=== PATIENT | male | born 2000 | race Caucasian/White ===

== ENCOUNTER 2024-04-17 20:32 | Inpatient (IN) ==
[2024-04-17 21:43] LABS: Alanine Aminotransferase 64 U/L (7-52); Albumin Globulin Ratio 1.6 (0.9-2); Albumin Level 5.1 gm/dl (3.4-5.0); Alkaline Phosphatase 67 U/L (34-104); Anion Gap 15 (3-11); BUN Creatinine Ratio 12.3 (10-20); Bilirubin,Total 0.3 mg/dl (0.2-1.0); Blood Urea Nitrogen 15 mg/dl (6-23); Calcium 9.1 mg/dl (8.6-10.3); Carbon Dioxide 20 mmol/L (21-32); Chloride 104 mmol/L (98-107); Creatinine Clr Calc Pharmacy 102.5 ml/min; Globulin 3.1 gm/dl (2.5-4.0); Glucose 120 mg/dl (70-99(Fasting)); Magnesium 2.6 mg/dl (1.7-2.4); Sodium 139 mmol/L (136-145); Total Protein 8.2 gm/dl (6.0-8.3); Troponin I High Sensitivity 2.8 pg/ml (0-20)
[2024-04-17 21:45] LABS: Basophils # (auto) 0.09 K/uL (0.00-0.20); Basophils % (auto) 0.8 %; Eosinophils # (auto) 0.26 K/uL (0.00-0.50); Eosinophils % (auto) 2.3 %; Hematocrit (blood only) 44.9 % (42.0-52.0); Hemoglobin 15.7 g/dl (14.0-18.0); Immature Granulocytes # (auto) 0.06 K/uL (0.01-0.20); Immature Granulocytes % (auto) 0.5 %; Lymphocytes # (auto) 4.65 K/uL (1.20-3.40); Lymphocytes % (auto) 40.5 %; Mean Corpuscular Hemoglobin 32.2 pg (25.0-34.0); Mean Platelet Volume 11.3 fL (9.4-12.4); Monocytes # (auto) 0.78 K/uL (0.11-0.59); Monocytes % (auto) 6.8 %; Neutrophils # (auto) 5.65 K/uL (1.40-6.50); Neutrophils % (auto) 49.1 %; Platelet Count 230 K/uL (130-400); RDW Coefficient of Variation 12.5 % (11.5-14.5); RDW Standard Deviation 42.4 fL (36.4-46.3); Red Blood Count 4.88 M/uL (4.70-6.10); White Blood Count 11.49 K/ul (4.8-10.8)
[2024-04-17 22:48] LABS: Adenovirus PCR Not Detected (NotDetected); Bordetella parapertussis PCR Not Detected (NotDetected); Bordetella pertussis PCR Not Detected (NotDetected); Chlamydia pneumoniae PCR Not Detected (NotDetected); Coronavirus 229E PCR Not Detected (NotDetected); Coronavirus CoV-2 (COVID19)PCR Not Detected (NotDetected); Coronavirus HKU1 PCR Not Detected (NotDetected); Coronavirus NL63 PCR Not Detected (NotDetected); Coronavirus OC43PCR Not Detected (NotDetected); Human Metapneumovirus PCR Not Detected (NotDetected); Influenza A PCR Not Detected (NotDetected); Influenza B PCR Not Detected (NotDetected); Mycoplasma pneumoniae PCR Not Detected (NotDetected); Parainfluenza Virus 1 PCR Not Detected (NotDetected); Parainfluenza Virus 2 PCR Not Detected (NotDetected); Parainfluenza Virus 3 PCR Not Detected (NotDetected); Parainfluenza Virus 4 PCR Not Detected (NotDetected); Respiratory Syncytial VirusPCR Not Detected (NotDetected); Rhinovirus/Enterovirus PCR Not Detected (NotDetected)
[2024-04-17 23:23] LABS: Potassium 3.5 mmol/L (3.5-5.1)
[2024-04-18 01:10] LABS: Appearance Urine Clear (Clear); Bilirubin Urine Negative (Negative); Blood Urine Negative (Negative); Color Urine Yellow; Glucose Urine UA Negative (Negative); Ketones Urine Negative (Negative); Leukocyte Esterase Urine Negative (Negative); Nitrite Urine Negative (Negative); Protein Urine Negative (Negative); Specific Gravity Urine 1.016 (1.000-1.030); Urobilinogen Urine Negative (Negative)
[2024-04-18 01:26] LABS: Amphetamines+Metham, Urine Neg (Neg); Barbiturates, Urine Neg (Neg); Benzodiazepine, Urine Neg (Neg); Cocaine, Urine Neg (Neg); Fentanyl, Urine Neg (Neg); MDMA (Ecstacy), Urine Neg (Neg); Marijuana, Urine Pos (Neg); Methadone, Urine Neg (Neg); Opiate, Urine Neg (Neg); Phencyclidine, Urine Neg (Neg)
--- NOTE | 2024-04-18 01:51 | Emergency Department Note ---
History of Present Illness General Chief complaint: Syncope Stated complaint: Seizure Time Seen by Provider: 04/17/24 21:33 History of Present Illness This is a 24-year-old male presenting to the emergency department via EMS for evaluation of syncope versus seizure. 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 Patient remembers feeling tired while in the supermarket, then next remembers waking up in the ER. According to EMS the patient was found slumped sideways up against the shelving in the supermarket. He was unresponsive but had a pulse and was breathing. EMS states the patient started to become more aware well and route to the ER. Patient does not have any known medical disease. No chronic medication use. He does not have any recent fevers or flulike symptoms. Patient has not been drinking tonight. He will occasionally use marijuana, and does have his marijuana card. He does travel for work but nothing out of the ordinary. Patient may have bit his tongue. No extremity pain. No chest pain, chest tightness, shortness of breath, or abdominal pain. Home Medications Medication Instructions Recorded Confirmed Type fluoxetine 20 mg capsule 20 mg PO QAM 04/18/24 04/18/24 History Allergies Allergy/AdvReac Type Severity Reaction Status Date / Time No Known Allergies Allergy Unverified 04/18/24 01:07 Past Med/Surg History Problem List (Updated 04/18/24 @ 04:57 by Bryan Chu PA-C) Abnormal CT scan of head (Acute) Seizure-like activity (Acute) Medical History (Updated 04/18/24 @ 04:57 by Bryan Chu PA-C) No chronic diseases present Surgical History (Updated 04/18/24 @ 01:52 by Bryan Chu PA-C) No significant past surgical history Social History Smoking Status: Current every day smoker Tobacco Type: E-cigarettes / Vaping Preferred Language: [place] Feels Safe at Home: Yes Review of Systems A total of 10 systems reviewed and were otherwise negative Physical Exam Vital Signs Vital Signs - 24 hr 04/17/24 20:43 04/17/24 20:54 04/17/24 21:01 Temperature 36.6 C Temperature Source Oral Pulse Rate 82 85 Pulse Rate from SpO2 Sensor 87 Respiratory Rate 13 16 Respiratory Effort / Characteristics Non-Labored Spontaneous Respiratory Depth Normal Respiratory Pattern Regular Blood Pressure 154/69 H Blood Pressure Mean 97 Pulse Oximetry 97 98 Oxygen Delivery Method Room Air Room Air Sepsis Recent Fever Within 48 Hours No Sepsis New/Unexplained Change in Mental Status No Sepsis Action Taken by Nursing No Action Required 04/17/24 21:39 04/17/24 21:57 04/17/24 22:09 Temperature Temperature Source Pulse Rate 76 72 Pulse Rate from SpO2 Sensor Respiratory Rate 12 13 Respiratory Effort / Characteristics Respiratory Depth Respiratory Pattern Blood Pressure 140/73 Blood Pressure Mean 90 Pulse Oximetry Oxygen Delivery Method Sepsis Recent Fever Within 48 Hours Sepsis New/Unexplained Change in Mental Status Sepsis Action Taken by Nursing 04/17/24 22:09 04/17/24 22:09 04/17/24 22:30 Temperature Temperature Source Pulse Rate 73 Pulse Rate from SpO2 Sensor 73 Respiratory Rate 12 Respiratory Effort / Characteristics Respiratory Depth Respiratory Pattern Blood Pressure 140/73 115/72 Blood Pressure Mean 90 79 Pulse Oximetry 99 Oxygen Delivery Method Sepsis Recent Fever Within 48 Hours Sepsis New/Unexplained Change in Mental Status Sepsis Action Taken by Nursing 04/17/24 22:30 04/17/24 22:33 04/17/24 22:45 Temperature Temperature Source Pulse Rate 70 70 Pulse Rate from SpO2 Sensor 70 70 Respiratory Rate 14 17 Respiratory Effort / Characteristics Respiratory Depth Respiratory Pattern Blood Pressure 115/72 Blood Pressure Mean 79 Pulse Oximetry 99 98 Oxygen Delivery Method Sepsis Recent Fever Within 48 Hours Sepsis New/Unexplained Change in Mental Status Sepsis Action Taken by Nursing 04/17/24 22:52 04/17/24 22:57 04/17/24 23:01 Temperature Temperature Source Pulse Rate 73 63 Pulse Rate from SpO2 Sensor 64 Respiratory Rate 14 Respiratory Effort / Characteristics Respiratory Depth Respiratory Pattern Blood Pressure 119/72 Blood Pressure Mean 85 Pulse Oximetry 99 Oxygen Delivery Method Sepsis Recent Fever Within 48 Hours Sepsis New/Unexplained Change in Mental Status Sepsis Action Taken by Nursing 04/17/24 23:12 04/17/24 23:21 04/17/24 23:24 Temperature Temperature Source Pulse Rate 69 77 63 Pulse Rate from SpO2 Sensor 69 63 Respiratory Rate 15 20 17 Respiratory Effort / Characteristics Respiratory Depth Respiratory Pattern Blood Pressure Blood Pressure Mean Pulse Oximetry 99 98 Oxygen Delivery Method Sepsis Recent Fever Within 48 Hours Sepsis New/Unexplained Change in Mental Status Sepsis Action Taken by Nursing 04/17/24 23:30 04/17/24 23:30 04/17/24 23:33 Temperature Temperature Source Pulse Rate 75 Pulse Rate from SpO2 Sensor 75 Respiratory Rate 18 Respiratory Effort / Characteristics Respiratory Depth Respiratory Pattern Blood Pressure 108/51 L 108/51 L Blood Pressure Mean 61 61 Pulse Oximetry 95 Oxygen Delivery Method Sepsis Recent Fever Within 48 Hours Sepsis New/Unexplained Change in Mental Status Sepsis Action Taken by Nursing 04/17/24 23:57 04/18/24 00:00 04/18/24 00:00 Temperature Temperature Source Pulse Rate 64 Pulse Rate from SpO2 Sensor 64 Respiratory Rate 18 Respiratory Effort / Characteristics Respiratory Depth Respiratory Pattern Blood Pressure 123/71 123/71 Blood Pressure Mean 85 85 Pulse Oximetry 97 Oxygen Delivery Method Sepsis Recent Fever Within 48 Hours Sepsis New/Unexplained Change in Mental Status Sepsis Action Taken by Nursing 04/18/24 00:03 04/18/24 00:12 04/18/24 00:15 Temperature Temperature Source Pulse Rate 69 62 62 Pulse Rate from SpO2 Sensor 70 62 62 Respiratory Rate 16 17 15 Respiratory Effort / Characteristics Respiratory Depth Respiratory Pattern Blood Pressure Blood Pressure Mean Pulse Oximetry 96 96 96 Oxygen Delivery Method Sepsis Recent Fever Within 48 Hours Sepsis New/Unexplained Change in Mental Status Sepsis Action Taken by Nursing 04/18/24 00:30 04/18/24 00:30 04/18/24 01:00 Temperature Temperature Source Pulse Rate Pulse Rate from SpO2 Sensor Respiratory Rate Respiratory Effort / Characteristics Respiratory Depth Respiratory Pattern Blood Pressure 102/60 102/60 118/71 Blood Pressure Mean 84 84 84 Pulse Oximetry Oxygen Delivery Method Sepsis Recent Fever Within 48 Hours Sepsis New/Unexplained Change in Mental Status Sepsis Action Taken by Nursing 04/18/24 01:09 04/18/24 01:18 04/18/24 02:00 Temperature Temperature Source Pulse Rate 62 67 Pulse Rate from SpO2 Sensor 62 68 Respiratory Rate 18 16 Respiratory Effort / Characteristics Respiratory Depth Respiratory Pattern Blood Pressure 123/58 L Blood Pressure Mean 71 Pulse Oximetry 97 98 Oxygen Delivery Method Sepsis Recent Fever Within 48 Hours Sepsis New/Unexplained Change in Mental Status Sepsis Action Taken by Nursing 04/18/24 02:00 04/18/24 02:00 04/18/24 02:00 Temperature Temperature Source Pulse Rate Pulse Rate from SpO2 Sensor Respiratory Rate Respiratory Effort / Characteristics Respiratory Depth Respiratory Pattern Blood Pressure 123/58 L 123/58 L 123/58 L Blood Pressure Mean 71 71 71 Pulse Oximetry Oxygen Delivery Method Sepsis Recent Fever Within 48 Hours Sepsis New/Unexplained Change in Mental Status Sepsis Action Taken by Nursing 04/18/24 02:03 04/18/24 02:18 04/18/24 02:21 Temperature Temperature Source Pulse Rate 63 66 66 Pulse Rate from SpO2 Sensor 63 67 66 Respiratory Rate 18 17 17 Respiratory Effort / Characteristics Respiratory Depth Respiratory Pattern Blood Pressure Blood Pressure Mean Pulse Oximetry 95 96 96 Oxygen Delivery Method Sepsis Recent Fever Within 48 Hours Sepsis New/Unexplained Change in Mental Status Sepsis Action Taken by Nursing 04/18/24 02:30 04/18/24 02:30 04/18/24 02:50 Temperature Temperature Source Pulse Rate 63 61 Pulse Rate from SpO2 Sensor 69 Respiratory Rate 16 Respiratory Effort / Characteristics Respiratory Depth Respiratory Pattern Blood Pressure 99/46 L Blood Pressure Mean 60 Pulse Oximetry 95 Oxygen Delivery Method Sepsis Recent Fever Within 48 Hours Sepsis New/Unexplained Change in Mental Status Sepsis Action Taken by Nursing VITALS: Vitals are noted on the nurse's note and reviewed by myself. Vital signs stable. GENERAL: Well-developed, well-nourished, white male, who is in no acute distress and resting comfortably. Patient is cooperative with the examination. HEAD: Normocephalic atraumatic. EARS: External ear normal. External auditory canals clear, tympanic membranes pearly merritt without erythema or effusion bilaterally. EYES: Pupils equal round and reactive to light and accommodation. Conjunctivae without injection, sclerae without icterus. Extraocular movements intact. NOSE: Patent, turbinates without inflammation or discharge. MOUTH: Mucous membranes moist. Tonsils are not enlarged. Pharynx without erythema, blood, or exudate. Uvula midline. Airway patent. NECK: Supple without nuchal rigidity. No lymphadenopathy. No thyromegaly. Cervical spine is nontender. HEART: Regular rate and rhythm without murmurs gallops or rubs. LUNGS: Clear to auscultation bilaterally without wheezes, rales or rhonchi. No retractions or accessory muscle use. ABDOMEN: Positive normal bowel sounds x 4. Soft, nontender, without masses or organomegaly. No guarding or rebound tenderness. MUSCULOSKELETAL: No muscle atrophy, erythema, or edema noted. Full range of motion in all extremities. NEURO: Patient was alert and oriented to person place and time. CN II through XII grossly intact. GCS 15 Course Administered Medications Sodium Chloride (Nss) 1,000 mls @ 100 mls/hr IV .Q10H STA Stop: 04/18/24 13:40 Last Admin: 04/18/24 04:30 Dose: 100 mls/hr Documented By: OLU Discontinued Medications Levetiracetam (Levetiracetam 500 Mg/5 Ml Vial) 1,000 mg IV NOW STA Stop: 04/18/24 03:39 Last Admin: 04/18/24 04:33 Dose: 1,000 mg Documented By: OLU Medical Decision Making Differential Diagnosis Differential diagnosis: Etiologies such as vasovagal event, infection, anemia, hypoglycemia, hypovolemia, electrolyte abnormalities, dysrhythmias, cardiac ischemia, cardiac tamponade, valvular heart disease, structural heart disease, seizure, vascular stenosis/dissection, pulmonary embolism, intracerebral event, toxicological process, neurologic event, as well as others were entertained. Laboratory Data 04/17/24 20:50 04/17/24 22:55 Lab Results 04/17/24 04/17/24 04/17/24 Range/Units 20:50 21:52 22:55 WBC 11.49 H (4.8-10.8) K/ul RBC 4.88 (4.70-6.10) M/uL Hgb 15.7 (14.0-18.0) g/dl Hct 44.9 (42.0-52.0) % MCV 92.0 (80.0-100.0) fL MCH 32.2 (25.0-34.0) pg MCHC 35.0 (32.0-36.0) g/dL RDW Std Deviation 42.4 (36.4-46.3) fL RDW Coeff of Sue 12.5 (11.5-14.5) % Plt Count 230 (130-400) K/uL MPV 11.3 (9.4-12.4) fL Immature Gran % (Auto) 0.5 % Neut % (Auto) 49.1 % Lymph % (Auto) 40.5 % [place] % (Auto) 6.8 % Eos % (Auto) 2.3 % Baso % (Auto) 0.8 % Neut # (Auto) 5.65 (1.40-6.50) K/uL Lymph # (Auto) 4.65 H (1.20-3.40) K/uL [place] # (Auto) 0.78 H (0.11-0.59) K/uL Eos # (Auto) 0.26 (0.00-0.50) K/uL Baso # (Auto) 0.09 (0.00-0.20) K/uL Immature Gran # (Auto) 0.06 (0.01-0.20) K/uL Sodium 139 (136-145) mmol/L Potassium TNP 3.5 Chloride 104 (98-107) mmol/L Carbon Dioxide 20 L (21-32) mmol/L Anion Gap 15 H (3-11) BUN 15 (6-23) mg/dl Creatinine 1.22 (0.6-1.4) mg/dl Est Cr Clr Drug Dosing 102.5 ml/min eGFR 84.90 BUN/Creatinine Ratio 12.3 (10-20) Glucose 120 H (70-99(Fasting)) mg/dl Calcium 9.1 (8.6-10.3) mg/dl Magnesium 2.6 H (1.7-2.4) mg/dl Total Bilirubin 0.3 (0.2-1.0) mg/dl AST TNP 43 H ALT 64 H (7-52) U/L Alkaline Phosphatase 67 (34-104) U/L Total Creatine Kinase 230 H (30-223) U/L Troponin I High Sens 2.8 (0-20) pg/ml Total Protein 8.2 (6.0-8.3) gm/dl Albumin 5.1 H (3.4-5.0) gm/dl Globulin 3.1 (2.5-4.0) gm/dl Albumin/Globulin Ratio 1.6 (0.9-2) Urine Color Urine Appearance (Clear) Urine pH (4.5-7.5) Ur Specific Sikes (1.000-1.030) Urine Protein (Negative) Urine Glucose (UA) (Negative) Urine Ketones (Negative) Urine Blood (Negative) Urine Nitrite (Negative) Urine Bilirubin (Negative) Urine Urobilinogen (Negative) Ur Leukocyte Esterase (Negative) Urine Opiates Screen (Neg) Ur Methadone, Qual (Neg) Urine Fentanyl Screen (Neg) Urine Barbiturates (Neg) Ur Phencyclidine (PCP) (Neg) U Amphetamin/Meth Scrn (Neg) MDMA (Ecstasy) Screen (Neg) U Benzodiazepines Scrn (Neg) Ur Cocaine Metabolite (Neg) U Marijuana (THC) Screen (Neg) Ethyl Alcohol mg/dL < 10.0 (<10.0) mg/dl Adenovirus (PCR) Not Detected (NotDetected) B. pertussis DNA (PCR) Not Detected (NotDetected) B.parapertussis DNA PCR Not Detected (NotDetected) C. pneumoniae DNA (PCR) Not Detected (NotDetected) Coronavirus OC43 (PCR) Not Detected (NotDetected) Coronavirus HKU1 (PCR) Not Detected (NotDetected) Coronavirus 229E (PCR) Not Detected (NotDetected) SARS-CoV-2 (PCR) Not Detected (NotDetected) Coronavirus NL63 (PCR) Not Detected (NotDetected) Human Metapneumovir PCR Not Detected (NotDetected) Influenza Type A (PCR) Not Detected (NotDetected) Influenza Type B (PCR) Not Detected (NotDetected) M. pneumoniae (PCR) Not Detected (NotDetected) Parainfluenza 1 (PCR) Not Detected (NotDetected) Parainfluenza 2 (PCR) Not Detected (NotDetected) Parainfluenza 3 (PCR) Not Detected (NotDetected) Parainfluenza 4 (PCR) Not Detected (NotDetected) RSV (PCR) Not Detected (NotDetected) Entero/Rhino (PCR) Not Detected (NotDetected) 04/18/24 Range/Units 00:45 WBC (4.8-10.8) K/ul RBC (4.70-6.10) M/uL Hgb (14.0-18.0) g/dl Hct (42.0-52.0) % MCV (80.0-100.0) fL MCH (25.0-34.0) pg MCHC (32.0-36.0) g/dL RDW Std Deviation (36.4-46.3) fL RDW Coeff of Sue (11.5-14.5) % Plt Count (130-400) K/uL MPV (9.4-12.4) fL Immature Gran % (Auto) % Neut % (Auto) % Lymph % (Auto) % [place] % (Auto) % Eos % (Auto) % Baso % (Auto) % Neut # (Auto) (1.40-6.50) K/uL Lymph # (Auto) (1.20-3.40) K/uL [place] # (Auto) (0.11-0.59) K/uL Eos # (Auto) (0.00-0.50) K/uL Baso # (Auto) (0.00-0.20) K/uL Immature Gran # (Auto) (0.01-0.20) K/uL Sodium (136-145) mmol/L Potassium Chloride (98-107) mmol/L Carbon Dioxide (21-32) mmol/L Anion Gap (3-11) BUN (6-23) mg/dl Creatinine (0.6-1.4) mg/dl Est Cr Clr Drug Dosing ml/min eGFR BUN/Creatinine Ratio (10-20) Glucose (70-99(Fasting)) mg/dl Calcium (8.6-10.3) mg/dl Magnesium (1.7-2.4) mg/dl Total Bilirubin (0.2-1.0) mg/dl AST ALT (7-52) U/L Alkaline Phosphatase (34-104) U/L Total Creatine Kinase (30-223) U/L Troponin I High Sens (0-20) pg/ml Total Protein (6.0-8.3) gm/dl Albumin (3.4-5.0) gm/dl Globulin (2.5-4.0) gm/dl Albumin/Globulin Ratio (0.9-2) Urine Color Yellow Urine Appearance Clear (Clear) Urine pH 6.0 (4.5-7.5) Ur Specific Sikes 1.016 (1.000-1.030) Urine Protein Negative (Negative) Urine Glucose (UA) Negative (Negative) Urine Ketones Negative (Negative) Urine Blood Negative (Negative) Urine Nitrite Negative (Negative) Urine Bilirubin Negative (Negative) Urine Urobilinogen Negative (Negative) Ur Leukocyte Esterase Negative (Negative) Urine Opiates Screen Neg (Neg) Ur Methadone, Qual Neg (Neg) Urine Fentanyl Screen Neg (Neg) Urine Barbiturates Neg (Neg) Ur Phencyclidine (PCP) Neg (Neg) U Amphetamin/Meth Scrn Neg (Neg) MDMA (Ecstasy) Screen Neg (Neg) U Benzodiazepines Scrn Neg (Neg) Ur Cocaine Metabolite Neg (Neg) U Marijuana (THC) Screen Pos H (Neg) Ethyl Alcohol mg/dL (<10.0) mg/dl Adenovirus (PCR) (NotDetected) B. pertussis DNA (PCR) (NotDetected) B.parapertussis DNA PCR (NotDetected) C. pneumoniae DNA (PCR) (NotDetected) Coronavirus OC43 (PCR) (NotDetected) Coronavirus HKU1 (PCR) (NotDetected) Coronavirus 229E (PCR) (NotDetected) SARS-CoV-2 (PCR) (NotDetected) Coronavirus NL63 (PCR) (NotDetected) Human Metapneumovir PCR (NotDetected) Influenza Type A (PCR) (NotDetected) Influenza Type B (PCR) (NotDetected) M. pneumoniae (PCR) (NotDetected) Parainfluenza 1 (PCR) (NotDetected) Parainfluenza 2 (PCR) (NotDetected) Parainfluenza 3 (PCR) (NotDetected) Parainfluenza 4 (PCR) (NotDetected) RSV (PCR) (NotDetected) Entero/Rhino (PCR) (NotDetected) Imaging Data Radiologist's Impression: Head CT 04/17/24 21:47 EXAM: CT head/brain wo con CLINICAL HISTORY: seizure TECHNIQUE: Multiple axial images are obtained from the skull base to the vertex without contrast. CT scan was performed according to ALARA (as low as reasonable achievable). COMPARISON: None. FINDINGS: Approximately 143 x 63 x 62 mm size well defined cystic lesion is noted involving quadrigeminal cistern. Anteriorly it abuts the splenium of corpus callosum and quadrigeminal plate. Laterally it causes compression on bilateral lateral ventricles. The brain shows normal morphology, attenuation, and volume for age. No evidence of emorrhage, edema, mass effect, midline shift, extra axial collection, or hydrocephalus is noted. Ventricles, sulci, and basal cisterns are symmetric and normal in size and configuration. The merritt-white matter differentiation is preserved. Visualized paranasal sinuses and mastoid air cells are well aerated. Orbital contents are within normal limits. Bony structures are intact. IMPRESSION: 1. 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 Anteriorly it abuts the splenium of corpus callosum and quadrigeminal plate. Laterally it causes compression on bilateral lateral ventricles.- possibility of quadrigeminal cistern arachnoid cyst. Advised MRI brain correlation. 2. No obvious changes of hydrocephalus. Electronically signed by Bhavik Stock 04-18-2024 02:37 AM MDM Narrative Physical exam and history were performed. Nursing notes, EMR, and Medication List were personally reviewed. No social concerns were identified as barriers to patients care. Patient appears to have had seizure or syncopal episode today. The patient is amnestic to the events, and on arrival to the ER is able to answer most questions appropriately. His physical exam is reassuring. IV access was established and labs were obtained. He was cared for under seizure precautions. CT scan of the head was ordered. Patient's blood work is as above and was reviewed. He does not have a significantly elevated white blood cell count, gross anemia, bandemia, or significant electrolyte imbalance. Transaminases are not diagnostic. Alcohol negative. Urine without distinct evidence of infection. Drug abuse screen is positive for marijuana, which was expected. BioFire negative. CK only slightly elevated at 230. CT scan was performed and reviewed by myself and radiology. His ventricles do seem enlarged compared to expected findings for a 24-year-old male. He seems to have a likely cyst which may be contributing to these symptoms. I did discuss findings with on-call neurology, and recommendation at this time is for hospital observation and MRI to further differentiate his symptoms. Escalation of care is felt necessary. Case was discussed with the on-call hospitalist. Please see their dictation for further patient course, plan, and disposition. The chart was completed utilizing [employer] Speech Voice Recognition Software. Grammatical errors, random word insertions, pronoun errors, and incomplete sentences are an occasional consequence of this system due to software limitations, ambient noise, and hardware issues. Any formal questions or concerns about the content, text, or information contained within the body of this dictation should be directly addressed to the provider for clarification. Impression & Plan Seizure-like activity, Abnormal CT scan of head Discharge Plan Visit Data Chief Complaint: Syncope Stated Complaint: Seizure ED Provider: Valeria Webber ED Midlevel Provider: Bryan Chu Discharge Problem: Seizure-like activity, Abnormal CT scan of head Forms Stand Alone Forms: My [facility] Prescriptions Prescriptions: No Action fluoxetine 20 mg capsule 20 mg PO QAM Referrals Referrals: Morgan Alamo MD [Primary Care Provider] -
--- NOTE | 2024-04-18 02:38 | CT Scan Report ---
EXAM: CT head/brain wo con CLINICAL HISTORY: seizure TECHNIQUE: Multiple axial images are obtained from the skull base to the vertex without contrast. CT scan was performed according to ALARA (as low as reasonable achievable). COMPARISON: None. FINDINGS: Approximately 143 x 63 x 62 mm size well defined cystic lesion is noted involving quadrigeminal cistern. Anteriorly it abuts the splenium of corpus callosum and quadrigeminal plate. Laterally it causes compression on bilateral lateral ventricles. The brain shows normal morphology, attenuation, and volume for age. No evidence of emorrhage, edema, mass effect, midline shift, extra axial collection, or hydrocephalus is noted. Ventricles, sulci, and basal cisterns are symmetric and normal in size and configuration. The merritt-white matter differentiation is preserved. Visualized paranasal sinuses and mastoid air cells are well aerated. Orbital contents are within normal limits. Bony structures are intact. IMPRESSION: 1. 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 Anteriorly it abuts the splenium of corpus callosum and quadrigeminal plate. Laterally it causes compression on bilateral lateral ventricles.- possibility of quadrigeminal cistern arachnoid cyst. Advised MRI brain correlation. 2. No obvious changes of hydrocephalus. Electronically signed by Bhavik Stock 04-18-2024 02:37 AM
--- NOTE | 2024-04-18 03:40 | History & Physical Report ---
Date of Service April 18, 2024 Assessment & Plan (1) Seizure: Plan: New onset seizures Rule out brain tumor given abnormal CT head mood disorder, at baseline Hyperglycemia rule out DM ongoing vape use Admit to medical telemetry Seizure precautions IV Keppra 1 dose now for seizure prophylaxis EEG, MRI brain re: new onset seizures Neurology consult Re: New onset seizures with abnormal CT of the head (ED provider already in touch with Dr. Fontaine who recommends brain MRI.) Defer maintenance AED Rx recommendations to neurology Check hemoglobin A1c DVT prophylaxis Lovenox subcu Full code Text document was generated using [employer] voice recognition software. It may contain grammatical or spelling errors. Kindly contact undersigned for clarification of any documentation item in question. History of Present Illness Chief Complaint: Fall, possible seizure Primary Care Provider: Morgan Alamo MD History obtained from patient and records. Medical history significant for mood disorder, ongoing vape use. 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 Started feeling hungry and thirsty. Patient remembers sensation of falling down and having bitten his tongue. Patient woke up in the ER. Frontal headache symptoms. manager hospitality told him on his phone that grocery customers witness him having seizures. Patient denies chest pain, SOB. No prior episodes. Medical History as above Surgical History : None Family History : DM, COPD; no seizures or brain tumor Personal/Social history : Vape use, occasional EtOH intake, marijuana use, beverage company employee Allergies Allergy/AdvReac Type Severity Reaction Status Date / Time No Known Allergies Allergy Unverified 04/18/24 01:07 Home Medications Medication Instructions Recorded Confirmed Type fluoxetine 20 mg capsule 20 mg PO QAM 04/18/24 04/18/24 History Past Med/Surg History Problem List (Updated 04/18/24 @ 05:57 by Av Clifford MD) Seizure Abnormal CT scan of head (Acute) Seizure-like activity (Acute) Medical History (Updated 04/18/24 @ 05:57 by Av Clifford MD) No chronic diseases present Surgical History (Updated 04/18/24 @ 01:52 by Bryan Chu PA-C) No significant past surgical history Social History Smoking Status: Current every day smoker Tobacco Type: E-cigarettes / Vaping Preferred Language: Yakut Feels Safe at Home: Yes Review of Systems Review of Systems: As per HPI, all other systems reviewed and negative Physical Exam Physical Exam: GENERAL: Comfortable, pleasant, no respiratory distress SKIN: Normal color, warm HEENT: [place] palpebral conjunctivae, no ptosis, moist buccal mucosa, contusion over tongue tip NECK : Supple, no tenderness CHEST : CTA, no tenderness HEART : Bradycardia, no obvious murmurs ABDOMEN: Some distention, nontender EXTREMITIES : No LE swelling/tenderness, no other conspicuous deformities noted NEUROLOGIC : Coherent, no facial asymmetry, no other gross focality Results & Data Results & Data Vital Signs (Past 12 Hours) Vital Signs Temp Pulse Resp BP Pulse Ox O2 Del Method 04/18/24 02:50 61 04/18/24 02:30 99/46 L 04/18/24 02:30 63 16 95 04/18/24 02:21 66 17 96 04/18/24 02:18 66 17 96 04/18/24 02:03 63 18 95 04/18/24 02:00 123/58 L 04/18/24 02:00 123/58 L 04/18/24 02:00 123/58 L 04/18/24 02:00 123/58 L 04/18/24 01:18 67 16 98 04/18/24 01:09 62 18 97 04/18/24 01:00 118/71 04/18/24 00:30 102/60 04/18/24 00:30 102/60 04/18/24 00:15 62 15 96 04/18/24 00:12 62 17 96 04/18/24 00:03 69 16 96 04/18/24 00:00 123/71 04/18/24 00:00 123/71 04/17/24 23:57 64 18 97 04/17/24 23:33 75 18 95 04/17/24 23:30 108/51 L 04/17/24 23:30 108/51 L 04/17/24 23:24 63 17 98 04/17/24 23:21 77 20 04/17/24 23:12 69 15 99 04/17/24 23:01 119/72 04/17/24 22:57 63 14 99 04/17/24 22:52 73 04/17/24 22:45 70 17 98 04/17/24 22:33 70 14 99 04/17/24 22:30 115/72 04/17/24 22:30 115/72 04/17/24 22:09 73 12 99 04/17/24 22:09 140/73 04/17/24 22:09 140/73 04/17/24 21:57 72 13 04/17/24 21:39 76 12 04/17/24 21:01 Room Air 04/17/24 20:54 85 16 98 04/17/24 20:43 36.6 C 82 13 154/69 H 97 Room Air Laboratory Results Laboratory Results WBC 11.49 K/ul (4.8-10.8) H 04/17/24 20:50 RBC 4.88 M/uL (4.70-6.10) 04/17/24 20:50 Hgb 15.7 g/dl (14.0-18.0) 04/17/24 20:50 Hct 44.9 % (42.0-52.0) 04/17/24 20:50 MCV 92.0 fL (80.0-100.0) 04/17/24 20:50 MCH 32.2 pg (25.0-34.0) 04/17/24 20:50 MCHC 35.0 g/dL (32.0-36.0) 04/17/24 20:50 RDW Std Deviation 42.4 fL (36.4-46.3) 04/17/24 20:50 RDW Coeff of Sue 12.5 % (11.5-14.5) 04/17/24 20:50 Plt Count 230 K/uL (130-400) 04/17/24 20:50 MPV 11.3 fL (9.4-12.4) 04/17/24 20:50 Immature Gran % (Auto) 0.5 % 04/17/24 20:50 Neut % (Auto) 49.1 % 04/17/24 20:50 Lymph % (Auto) 40.5 % 04/17/24 20:50 [place] % (Auto) 6.8 % 04/17/24 20:50 Eos % (Auto) 2.3 % 04/17/24 20:50 Baso % (Auto) 0.8 % 04/17/24 20:50 Neut # (Auto) 5.65 K/uL (1.40-6.50) 04/17/24 20:50 Lymph # (Auto) 4.65 K/uL (1.20-3.40) H 04/17/24 20:50 [place] # (Auto) 0.78 K/uL (0.11-0.59) H 04/17/24 20:50 Eos # (Auto) 0.26 K/uL (0.00-0.50) 04/17/24 20:50 Baso # (Auto) 0.09 K/uL (0.00-0.20) 04/17/24 20:50 Immature Gran # (Auto) 0.06 K/uL (0.01-0.20) 04/17/24 20:50 Sodium 139 mmol/L (136-145) 04/17/24 20:50 Potassium 3.5 mmol/L (3.5-5.1) 04/17/24 22:55 Chloride 104 mmol/L (98-107) 04/17/24 20:50 Carbon Dioxide 20 mmol/L (21-32) L 04/17/24 20:50 Anion Gap 15 (3-11) H 04/17/24 20:50 BUN 15 mg/dl (6-23) 04/17/24 20:50 Creatinine 1.22 mg/dl (0.6-1.4) 04/17/24 20:50 Est Cr Clr Drug Dosing 102.5 ml/min 04/17/24 20:50 eGFR 84.90 04/17/24 20:50 BUN/Creatinine Ratio 12.3 (10-20) 04/17/24 20:50 Glucose 120 mg/dl (70-99(Fasting)) H 04/17/24 20:50 Calcium 9.1 mg/dl (8.6-10.3) 04/17/24 20:50 Magnesium 2.6 mg/dl (1.7-2.4) H 04/17/24 20:50 Total Bilirubin 0.3 mg/dl (0.2-1.0) 04/17/24 20:50 AST 43 U/L (13-39) H 04/17/24 22:55 ALT 64 U/L (7-52) H 04/17/24 20:50 Alkaline Phosphatase 67 U/L (34-104) 04/17/24 20:50 Total Creatine Kinase 230 U/L (30-223) H 04/17/24 22:55 Troponin I High Sens 2.8 pg/ml (0-20) 04/17/24 20:50 Total Protein 8.2 gm/dl (6.0-8.3) 04/17/24 20:50 Albumin 5.1 gm/dl (3.4-5.0) H 04/17/24 20:50 Globulin 3.1 gm/dl (2.5-4.0) 04/17/24 20:50 Albumin/Globulin Ratio 1.6 (0.9-2) 04/17/24 20:50 Urine Color Yellow 04/18/24 00:45 Urine Appearance Clear (Clear) 04/18/24 00:45 Urine pH 6.0 (4.5-7.5) 04/18/24 00:45 Ur Specific [place] 1.016 (1.000-1.030) 04/18/24 00:45 Urine Protein Negative (Negative) 04/18/24 00:45 Urine Glucose (UA) Negative (Negative) 04/18/24 00:45 Urine Ketones Negative (Negative) 04/18/24 00:45 Urine Blood Negative (Negative) 04/18/24 00:45 Urine Nitrite Negative (Negative) 04/18/24 00:45 Urine Bilirubin Negative (Negative) 04/18/24 00:45 Urine Urobilinogen Negative (Negative) 04/18/24 00:45 Ur Leukocyte Esterase Negative (Negative) 04/18/24 00:45 Urine Opiates Screen Neg (Neg) 04/18/24 00:45 Ur Methadone, Qual Neg (Neg) 04/18/24 00:45 Urine Fentanyl Screen Neg (Neg) 04/18/24 00:45 Urine Barbiturates Neg (Neg) 04/18/24 00:45 Ur Phencyclidine (PCP) Neg (Neg) 04/18/24 00:45 U Amphetamin/Meth Scrn Neg (Neg) 04/18/24 00:45 MDMA (Ecstasy) Screen Neg (Neg) 04/18/24 00:45 U Benzodiazepines Scrn Neg (Neg) 04/18/24 00:45 Ur Cocaine Metabolite Neg (Neg) 04/18/24 00:45 U Marijuana (THC) Screen Pos (Neg) H 04/18/24 00:45 Ethyl Alcohol mg/dL < 10.0 mg/dl (<10.0) 04/17/24 22:55 Adenovirus (PCR) Not Detected (NotDetected) 04/17/24 21:52 B. pertussis DNA (PCR) Not Detected (NotDetected) 04/17/24 21:52 B.parapertussis DNA PCR Not Detected (NotDetected) 04/17/24 21:52 C. pneumoniae DNA (PCR) Not Detected (NotDetected) 04/17/24 21:52 Coronavirus OC43 (PCR) Not Detected (NotDetected) 04/17/24 21:52 Coronavirus HKU1 (PCR) Not Detected (NotDetected) 04/17/24 21:52 Coronavirus 229E (PCR) Not Detected (NotDetected) 04/17/24 21:52 SARS-CoV-2 (PCR) Not Detected (NotDetected) 04/17/24 21:52 Coronavirus NL63 (PCR) Not Detected (NotDetected) 04/17/24 21:52 Human Metapneumovir PCR Not Detected (NotDetected) 04/17/24 21:52 Influenza Type A (PCR) Not Detected (NotDetected) 04/17/24 21:52 Influenza Type B (PCR) Not Detected (NotDetected) 04/17/24 21:52 M. pneumoniae (PCR) Not Detected (NotDetected) 04/17/24 21:52 Parainfluenza 1 (PCR) Not Detected (NotDetected) 04/17/24 21:52 Parainfluenza 2 (PCR) Not Detected (NotDetected) 04/17/24 21:52 Parainfluenza 3 (PCR) Not Detected (NotDetected) 04/17/24 21:52 Parainfluenza 4 (PCR) Not Detected (NotDetected) 04/17/24 21:52 RSV (PCR) Not Detected (NotDetected) 04/17/24 21:52 Entero/Rhino (PCR) Not Detected (NotDetected) 04/17/24 21:[address] 04/17/24 21:47 EXAM: CT head/brain wo con CLINICAL HISTORY: seizure TECHNIQUE: Multiple axial images are obtained from the skull base to the vertex without contrast. CT scan was performed according to ALARA (as low as reasonable achievable). COMPARISON: None. FINDINGS: Approximately 143 x 63 x 62 mm size well defined cystic lesion is noted involving quadrigeminal cistern. Anteriorly it abuts the splenium of corpus callosum and quadrigeminal plate. Laterally it causes compression on bilateral lateral ventricles. The brain shows normal morphology, attenuation, and volume for age. No evidence of emorrhage, edema, mass effect, midline shift, extra axial collection, or hydrocephalus is noted. Ventricles, sulci, and basal cisterns are symmetric and normal in size and configuration. The merritt-white matter differentiation is preserved. Visualized paranasal sinuses and mastoid air cells are well aerated. Orbital contents are within normal limits. Bony structures are intact. IMPRESSION: 1. 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 Anteriorly it abuts the splenium of corpus callosum and quadrigeminal plate. Laterally it causes compression on bilateral lateral ventricles.- possibility of quadrigeminal cistern arachnoid cyst. Advised MRI brain correlation. 2. No obvious changes of hydrocephalus. Electronically signed by Bhavik Stock 04-18-2024 02:37 AM Diagnostic Findings EKG as per my interpretation :Rate 90, NSR, normal axis, no ischemia
[2024-04-18] MEDS ORDERED: LORazepam 2 MG/1 ML VIAL IV PRN (03:42)
[2024-04-18] MEDS ORDERED: PROMETHAZINE 6.25 MG/50.25 ML BAG IV PRN (04:25)
[2024-04-18] MEDS ORDERED: KETOROLAC TROMETHAMINE 15 MG/ML VIAL IV PRN (04:25)
[2024-04-18] MEDS ORDERED: ACETAMINOPHEN 500 MG TAB PO PRN (04:25)
[2024-04-18] MEDS ORDERED: LORazepam 0.5 MG TAB PO PRN (04:25)
[2024-04-18] MEDS: SODIUM CHLORIDE 0.9% 1,000 ML IV STA (04:30)
[2024-04-18] MEDS: levETIRAcetam 500 MG/5 ML VIAL IV STA (04:33)
[2024-04-18 06:04] LABS: Basophils # (auto) 0.05 K/uL (0.00-0.20); Basophils % (auto) 0.5 %; Eosinophils # (auto) 0.08 K/uL (0.00-0.50); Eosinophils % (auto) 0.8 %; Hematocrit (blood only) 42.2 % (42.0-52.0); Hemoglobin 14.9 g/dl (14.0-18.0); Immature Granulocytes # (auto) 0.04 K/uL (0.01-0.20); Immature Granulocytes % (auto) 0.4 %; Lymphocytes # (auto) 2.15 K/uL (1.20-3.40); Lymphocytes % (auto) 20.8 %; Mean Corpuscular Hemoglobin 31.6 pg (25.0-34.0); Mean Corpuscular Hgb Conc 35.3 g/dL (32.0-36.0); Mean Corpuscular Volume 89.4 fL (80.0-100.0); Mean Platelet Volume 10.6 fL (9.4-12.4); Monocytes # (auto) 1.26 K/uL (0.11-0.59); Monocytes % (auto) 12.2 %; Neutrophils # (auto) 6.78 K/uL (1.40-6.50); Neutrophils % (auto) 65.3 %; Platelet Count 214 K/uL (130-400); RDW Coefficient of Variation 12.5 % (11.5-14.5); RDW Standard Deviation 40.8 fL (36.4-46.3); Red Blood Count 4.72 M/uL (4.70-6.10); White Blood Count 10.36 K/ul (4.8-10.8)
[2024-04-18 06:09] LABS: Albumin Globulin Ratio 1.5 (0.9-2); Albumin Level 4.2 gm/dl (3.4-5.0); BUN Creatinine Ratio 15.1 (10-20); Bilirubin,Total 0.6 mg/dl (0.2-1.0); Calcium 8.9 mg/dl (8.6-10.3); Creatinine Clr Calc Pharmacy 134.4 ml/min; Globulin 2.8 gm/dl (2.5-4.0); Potassium 3.9 mmol/L (3.5-5.1)
[2024-04-18] MEDS: GADOBUTROL 65ML VIAL IV ONE (06:23)
--- NOTE | 2024-04-18 07:58 | Magnetic Resonance Report ---
EXAM: MR brain seizure wo/w con CLINICAL HISTORY: The patient found in [employer] laying face down unresponsive. ? An arachnoid cyst seen on CT. C11B ordered as brain for seizure. images [id number] TECHNIQUE: MRI of the brain was performed with and without 8.5cc Gadavist intravenous contrast administration. Sequences obtained include pre-contrast and post-contrast T1-weighted, T2-weighted, FLAIR (Fluid-Attenuated Inversion Recovery), DWI (Diffusion-Weighted Imaging), and ADC (Apparent Diffusion Coefficient) sequences. COMPARISON: Comparison is made with prior imaging studies dated CT 04/17/2024. FINDINGS: Brain Parenchyma: No evidence of acute infarction or hemorrhage. Guevara-white matter differentiation is preserved. No abnormal signal-intensity lesions were identified. A well-defined lobulated lesion approximately measuring 6.4 x 4.5 x 6.2 cm in axial and CC diameters respectively is noted involving the quadrigeminal cistern. It elicits a low signal on T1, a heterogeneous/dirty signal on FLAIR, and a high signal on T2 (CSF signal) with restricted diffusion and no enhancement following IV contrast. Anteriorly it indents and anteriorly displaces the splenium of the corpus callosum and quadrigeminal plate. Laterally it causes compression on bilateral lateral ventricles which are seen as mildly dilated. Post-Contrast Findings: No abnormal enhancement of the brain parenchyma or meninges. Ventricles and Sulci: No evidence of acute hydrocephalus. Sulci and cisternal spaces are age-appropriate. Brainstem and Cerebellum: Normal appearance of the brainstem and cerebellum without focal lesions or abnormal enhancement. Vessels: Intracranial vessels appear normal without evidence of vascular malformations or aneurysms. Skull and Calvarium: No evidence of skull vault lesions or abnormal marrow signals within the calvarium. IMPRESSION: 1. A large well-defined lobulated lesion is noted involving the quadrigeminal cistern causing mass effect as described. 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 2. No evidence of acute intracranial pathology or abnormal contrast enhancement. Electronically signed by Christiana Coleman 04-18-2024 07:57 AM
--- NOTE | 2024-04-18 08:55 | Electrocardiogram Report ---
Test Reason : Blood Pressure : */* mmHG Vent. Rate : 92 BPM Atrial Rate : 92 BPM P-R Int : 136 ms QRS Dur : 100 ms QT Int : 390 ms P-R-T Axes : 54 77 60 degrees QTcB Int : 482 ms Normal sinus rhythm Prolonged QT Abnormal ECG No previous ECGs available Confirmed by Mario Loaiza ([id number]) on 04/18/2024 8:54:40 AM Referred By: REFERRED SELF Confirmed By: Mario Loaiza
[2024-04-18] MEDS: FLUoxetine HCL 20 MG CAP PO SCH (09:55)
--- NOTE | 2024-04-18 12:21 | Neurology Consultation ---
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 Continue Keppra Continue seizure precautions Utilize benzodiazepines emergently for any breakthrough clinical seizure like activity Continue frequent neurological assessments Obtain stat CT brain without contrast for any acute neurological decline Continue to monitor/control blood pressure & blood glucose Continue to monitor renal and hepatic function, keep euvolemic Ok from neurology perspective for VTE prophylaxis Telehealth Consultation Telehealth Information Telehealth Information: I performed this visit using a real-time telehealth connection between my location and the patients location ([facility]). After co nnecting through interactive tele-video, patient was identified by name and date of and/or wristband check.Patient (or authorized healthcare airport representative) was informed that this was a telemedicine visit and it was being conducted confidentially over secure lines. My office door was closed and no one else was present in the room with me.Patient (or authorized healthcare airport representative) provided consent to proceed with the visit, expressed an understanding of privacy and security of the telemedicine visit, and gave permission to have a hospital airport representative in the room in order to assist with the visit and to conduct portions of the visit, as needed. I informed the patient (or authorized healthcare airport representative) that I reviewed their record and presented the opportunity for them to ask any questions regarding the visit today. The patient agreed to participate. History of Present Illness Reason for Consultation: Seizure Requesting Physician: Dr. Vásquez Attending Physician: Bianca Vásquez MD History of Present Illness 24yo male presented to ER following episode of reported witnessed seizurelike activity. He was stocking soda in a grocery store and only remembers feeling tired just before the event. He states sometimes smelling burning and hearing ringing in his ears. Denies trauma. Positive tongue biting may have been secondary to fall. Reports feeling unsteady when bending over. He has undergone a CT brain without contrast, personally reviewed and MRI brain personally reviewed revealing large quadrigeminal cistern lesion approx 6x6cm. I have performed televideo consultation. He is alert & oriented; able to answer all questions appropriately, name objects on televideo monitor, repeat phrases and perform complex/embedded commands without deficit. Neurological exam is non lateralizing/nonfocal in terms of motor strength and coordination. He has received Keppra in ER and has undergone EEG. I have discussed recommendations for transfer to undergo formal NSG evaluation. His Father at bedside all questions answered. Allergies Allergy/AdvReac Type Severity Reaction Status Date / Time No Known Allergies Allergy Unverified 04/18/24 01:07 Home Medications Medication Instructions Recorded Confirmed Type fluoxetine 20 mg capsule 20 mg PO QAM 04/18/24 04/18/24 History Patient History Medical History (Updated 04/18/24 @ 05:57 by Av Clifford MD) No chronic diseases present Surgical History (Updated 04/18/24 @ 01:52 by Bryan Chu PA-C) No significant past surgical history Social History Smoking Status: Current every day smoker Tobacco Type: E-cigarettes / Vaping Second Hand Exposure: No; Do You Dip or Chew Tobacco: No; Hx Alcohol Use: No Hx Substance Use: Yes Preferred Language: Slovak Communication Ability: Effective Information Technology Technician Required: No Beliefs That Will Affect Care: None Current Living Situation: Alone Feels Safe at Home: Yes Physical Exam Neurological Examination: Mental Status: Awake and alert. Friendly and smiles frequently Oriented to person, place, and time. Fluency naming repetition and comprehension appear grossly intact. CN testing: I: Denies changes in ability to smell II:Reports no changes in visual acuity III/IV/: No evidence of gaze preference, hippus, nystagmus or roving eye movements V: Facial sensation reportedly grossly intact to light touch bilaterally VII: Facial movements appear without evidence of asymmetry VIII: Hearing appears grossly intact to loud voice bilaterally IX/X: Palate appears to elevate symmetrically XI: Shoulder shrug appears symmetric/ grossly intact bilaterally XII: Tongue protrudes midline without evidence of biting anteriorly Motor exam: Strength appears grossly intact/symmetric in all extremities Sensory: Sensation is reportedly grossly intact throughout Coordination: Finger to nose and heel to blackman were intact. No overt evidence of dysmetria or dysdiadochokinesia Reflexes: Deferred Gait: Deferred Results & Data Vital Signs (Past 12 Hours) Vital Signs Temp Pulse Pulse Pulse Resp BP BP 04/18/24 08:48 36.3 C L 59 L 18 115/63 04/18/24 08:39 52 L 04/18/24 07:00 55 L 20 110/72 04/18/24 06:58 56 L 04/18/24 05:48 63 13 04/18/24 05:30 63 14 04/18/24 05:30 104/71 04/18/24 05:30 104/71 04/18/24 05:30 104/71 04/18/24 05:21 60 20 04/18/24 05:12 73 13 04/18/24 05:00 105/55 L 04/18/24 05:00 105/55 L 04/18/24 05:00 105/55 L 04/18/24 05:00 105/55 L 04/18/24 05:00 105/55 L 04/18/24 05:00 61 16 04/18/24 04:42 60 19 04/18/24 04:39 55 L 17 04/18/24 04:30 119/70 04/18/24 04:30 119/70 04/18/24 04:30 119/70 04/18/24 04:21 67 17 04/18/24 04:15 72 15 04/18/24 04:06 56 L 19 04/18/24 04:00 104/52 L 04/18/24 03:54 58 L 15 04/18/24 03:51 63 17 04/18/24 03:39 59 L 19 04/18/24 03:30 105/54 L 04/18/24 03:27 57 L 19 04/18/24 03:12 62 19 04/18/24 03:00 111/70 04/18/24 03:00 111/70 04/18/24 03:00 111/70 04/18/24 03:00 69 16 04/18/24 02:50 61 04/18/24 02:30 99/46 L 04/18/24 02:30 99/46 L 04/18/24 02:30 63 16 04/18/24 02:21 66 17 04/18/24 02:18 66 17 04/18/24 02:03 63 18 04/18/24 02:00 123/58 L 04/18/24 02:00 123/58 L 04/18/24 02:00 123/58 L 04/18/24 02:00 123/58 L 04/18/24 01:18 67 16 04/18/24 01:09 62 18 04/18/24 01:00 118/71 04/18/24 00:30 102/60 04/18/24 00:30 102/60 Pulse Ox O2 Del Method 04/18/24 08:48 98 Room Air 04/18/24 08:39 04/18/24 07:00 98 Room Air 04/18/24 06:58 04/18/24 05:48 94 04/18/24 05:30 95 04/18/24 05:30 04/18/24 05:30 04/18/24 05:30 04/18/24 05:21 95 04/18/24 05:12 98 04/18/24 05:00 04/18/24 05:00 04/18/24 05:00 04/18/24 05:00 04/18/24 05:00 04/18/24 05:00 96 04/18/24 04:42 97 04/18/24 04:39 98 04/18/24 04:30 04/18/24 04:30 04/18/24 04:30 04/18/24 04:21 100 04/18/24 04:15 98 04/18/24 04:06 95 04/18/24 04:00 04/18/24 03:54 94 04/18/24 03:51 95 04/18/24 03:39 95 04/18/24 03:30 04/18/24 03:27 95 04/18/24 03:12 94 04/18/24 03:00 04/18/24 03:00 04/18/24 03:00 04/18/24 03:00 94 04/18/24 02:50 04/18/24 02:30 04/18/24 02:30 04/18/24 02:30 95 04/18/24 02:21 96 04/18/24 02:18 96 04/18/24 02:03 95 04/18/24 02:00 04/18/24 02:00 04/18/24 02:00 04/18/24 02:00 04/18/24 01:18 98 04/18/24 01:09 97 04/18/24 01:00 04/18/24 00:30 04/18/24 00:30 Laboratory Results Abnormal lab results 04/17/24 04/17/24 04/18/24 Range/Units 20:50 22:55 00:45 WBC 11.49 H (4.8-10.8) K/ul Neut # (Auto) (1.40-6.50) K/uL Lymph # (Auto) 4.65 H (1.20-3.40) K/uL Leon # (Auto) 0.78 H (0.11-0.59) K/uL Carbon Dioxide 20 L (21-32) mmol/L Anion Gap 15 H (3-11) Glucose 120 H (70-99(Fasting)) mg/dl Magnesium 2.6 H (1.7-2.4) mg/dl AST 43 H (13-39) U/L ALT 64 H (7-52) U/L Total Creatine Kinase 230 H (30-223) U/L Albumin 5.1 H (3.4-5.0) gm/dl U Marijuana (THC) Screen Pos H (Neg) 04/18/24 Range/Units 05:37 WBC (4.8-10.8) K/ul Neut # (Auto) 6.78 H (1.40-6.50) K/uL Lymph # (Auto) (1.20-3.40) K/uL Leon # (Auto) 1.26 H (0.11-0.59) K/uL Carbon Dioxide (21-32) mmol/L Anion Gap (3-11) Glucose 110 H (70-99(Fasting)) mg/dl Magnesium (1.7-2.4) mg/dl AST (13-39) U/L ALT 57 H (7-52) U/L Total Creatine Kinase (30-223) U/L Albumin (3.4-5.0) gm/dl U Marijuana (THC) Screen (Neg) Diagnostic Findings Head CT 04/17/24 21:47 EXAM: CT head/brain wo con CLINICAL HISTORY: seizure TECHNIQUE: Multiple axial images are obtained from the skull base to the vertex without contrast. CT scan was performed according to ALARA (as low as reasonable achievable). COMPARISON: None. FINDINGS: Approximately 143 x 63 x 62 mm size well defined cystic lesion is noted involving quadrigeminal cistern. Anteriorly it abuts the splenium of corpus callosum and quadrigeminal plate. Laterally it causes compression on bilateral lateral ventricles. The brain shows normal morphology, attenuation, and volume for age. No evidence of emorrhage, edema, mass effect, midline shift, extra axial collection, or hydrocephalus is noted. Ventricles, sulci, and basal cisterns are symmetric and normal in size and configuration. The guevara-white matter differentiation is preserved. Visualized paranasal sinuses and mastoid air cells are well aerated. Orbital contents are within normal limits. Bony structures are intact. IMPRESSION: 1. 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 Anteriorly it abuts the splenium of corpus callosum and quadrigeminal plate. Laterally it causes compression on bilateral lateral ventricles.- possibility of quadrigeminal cistern arachnoid cyst. Advised MRI brain correlation. 2. No obvious changes of hydrocephalus. Electronically signed by Bhavik Stock 04-18-2024 02:37 AM Brain MRI 04/18/24 04:25 EXAM: MR brain seizure wo/w con CLINICAL HISTORY: The patient found in [place] laying face down unresponsive. ? An arachnoid cyst seen on CT. C11B ordered as brain for seizure. images 584 TECHNIQUE: MRI of the brain was performed with and without 8.5cc Gadavist intravenous contrast administration. Sequences obtained include pre-contrast and post-contrast T1-weighted, T2-weighted, FLAIR (Fluid-Attenuated Inversion Recovery), DWI (Diffusion-Weighted Imaging), and ADC (Apparent Diffusion Coefficient) sequences. COMPARISON: Comparison is made with prior imaging studies dated CT 04/17/2024. FINDINGS: Brain Parenchyma: No evidence of acute infarction or hemorrhage. Guevara-white matter differentiation is preserved. No abnormal signal-intensity lesions were identified. A well-defined lobulated lesion approximately measuring 6.4 x 4.5 x 6.2 cm in axial and CC diameters respectively is noted involving the quadrigeminal cistern. It elicits a low signal on T1, a heterogeneous/dirty signal on FLAIR, and a high signal on T2 (CSF signal) with restricted diffusion and no enhancement following IV contrast. Anteriorly it indents and anteriorly displaces the splenium of the corpus callosum and quadrigeminal plate. Laterally it causes compression on bilateral lateral ventricles which are seen as mildly dilated. Post-Contrast Findings: No abnormal enhancement of the brain parenchyma or meninges. Ventricles and Sulci: No evidence of acute hydrocephalus. Sulci and cisternal spaces are age-appropriate. Brainstem and Cerebellum: Normal appearance of the brainstem and cerebellum without focal lesions or abnormal enhancement. Vessels: Intracranial vessels appear normal without evidence of vascular malformations or aneurysms. Skull and Calvarium: No evidence of skull vault lesions or abnormal marrow signals within the calvarium. IMPRESSION: 1. A large well-defined lobulated lesion is noted involving the quadrigeminal cistern causing mass effect as described. 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 2. No evidence of acute intracranial pathology or abnormal contrast enhancement. Electronically signed by Christiana Coleman 04-18-2024 07:57 AM Medications Administered Home Medications Medication Instructions Recorded Confirmed Last Taken fluoxetine 20 mg capsule 20 mg PO QAM 04/18/24 04/18/24 04/17/24 Active Medications Generic Name Dose Route Start Last Admin Trade Name Freq PRN Reason Stop Dose Admin Fluoxetine HCl 20 mg 04/18/24 09:00 04/18/24 09:55 Fluoxetine Hcl 20 Mg Cap PO 05/18/24 08:59 20 mg QAM XOCHILT Administration
--- NOTE | 2024-04-18 14:16 | Discharge Summary ---
Discharge Summary Date of Service April 18, 2024 Principal Dx & Hospital Course #1 = Principal Diagnosis (1) Seizure-like activity: (2) Abnormal CT scan of head: Plan Pt is a 24yoM with PMHx significant for mood disorder, ongoing vape use who was admitted for further evaluation after witnessed seizure at work. 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 Does not remember what happened. States he did bite his tongue. Reportedly was told that customers in the store witnessed him having a seizure. Head CT done in the emergency room was suggestive of "possibility of quadrigeminal cistern arachnoid cyst" and recommended follow-up MRI. 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 Patient was treated in the emergency room with 1 g of IV Keppra and was evaluated by neurology who recommended continuing Keppra 500 mg twice a day and transferred to a tertiary care center for neurosurgical evaluation. Patient was accepted for transfer to [facility]. He and family are currently agreeable to going via ambulance in case he has seizures once more en route. Notes For Next Care Provider Pt transferred for neurosurgical evaluation Medication Changes From Visit Keppra 500mg BID Admission HPI Per Admitting Provider History obtained from patient and records. Medical history significant for mood disorder, ongoing vape use. 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 Started feeling hungry and thirsty. Patient remembers sensation of falling down and having bitten his tongue. Patient woke up in the ER. Frontal headache symptoms. ticket manager told him on his phone that grocery customers witness him having seizures. Patient denies chest pain, SOB. No prior episodes. Medical History as above Surgical History : None Family History : DM, COPD; no seizures or brain tumor Personal/Social history : Vape use, occasional EtOH intake, marijuana use, beverage company employee Admission Exam Per Admitting Provider GENERAL: Comfortable, pleasant, no respiratory distress SKIN: Normal color, warm HEENT: [place] palpebral conjunctivae, no ptosis, moist buccal mucosa, contusion over tongue tip NECK : Supple, no tenderness CHEST : CTA, no tenderness HEART : Bradycardia, no obvious murmurs ABDOMEN: Some distention, nontender EXTREMITIES : No LE swelling/tenderness, no other conspicuous deformities noted NEUROLOGIC : Coherent, no facial asymmetry, no other gross focality Discharge Exam General: Alert, oriented. No acute distress Psych: Appropriate mood and affect Neuro: left hip pain otherwise grossly intact HEENT: NC/AT CV: RRR Resp: Breath sounds clear bilaterally, no increased effort of breathing Abdomen: Soft, nontender Extremities: No edema in lower extremities bilaterally. Updated Medication List Medication Instructions Recorded Confirmed Type fluoxetine 20 mg capsule 20 mg PO QAM 04/18/24 04/18/24 History Hospital Stay Data Consultations 04/18/24 03:23 ED Decision to Admit Stat 04/18/24 08:25 Consult Neurology Routine Diagnostic Imagining Performed 04/17/24 21:47 CT head/brain wo con Stat 04/18/24 04:25 MRI Brain [MR brain seizure wo/w con] Stat Head CT 04/17/24 21:47 EXAM: CT head/brain wo con CLINICAL HISTORY: seizure TECHNIQUE: Multiple axial images are obtained from the skull base to the vertex without contrast. CT scan was performed according to ALARA (as low as reasonable achievable). COMPARISON: None. FINDINGS: Approximately 143 x 63 x 62 mm size well defined cystic lesion is noted involving quadrigeminal cistern. Anteriorly it abuts the splenium of corpus callosum and quadrigeminal plate. Laterally it causes compression on bilateral lateral ventricles. The brain shows normal morphology, attenuation, and volume for age. No evidence of emorrhage, edema, mass effect, midline shift, extra axial collection, or hydrocephalus is noted. Ventricles, sulci, and basal cisterns are symmetric and normal in size and configuration. The guevara-white matter differentiation is preserved. Visualized paranasal sinuses and mastoid air cells are well aerated. Orbital contents are within normal limits. Bony structures are intact. IMPRESSION: 1. 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 Anteriorly it abuts the splenium of corpus callosum and quadrigeminal plate. Laterally it causes compression on bilateral lateral ventricles.- possibility of quadrigeminal cistern arachnoid cyst. Advised MRI brain correlation. 2. No obvious changes of hydrocephalus. Electronically signed by Bhavik Stock 04-18-2024 02:37 AM Brain MRI 04/18/24 04:25 EXAM: MR brain seizure wo/w con CLINICAL HISTORY: The patient found in [place] laying face down unresponsive. ? An arachnoid cyst seen on CT. C11B ordered as brain for seizure. images 584 TECHNIQUE: MRI of the brain was performed with and without 8.5cc Gadavist intravenous contrast administration. Sequences obtained include pre-contrast and post-contrast T1-weighted, T2-weighted, FLAIR (Fluid-Attenuated Inversion Recovery), DWI (Diffusion-Weighted Imaging), and ADC (Apparent Diffusion Coefficient) sequences. COMPARISON: Comparison is made with prior imaging studies dated CT 04/17/2024. FINDINGS: Brain Parenchyma: No evidence of acute infarction or hemorrhage. Guevara-white matter differentiation is preserved. No abnormal signal-intensity lesions were identified. A well-defined lobulated lesion approximately measuring 6.4 x 4.5 x 6.2 cm in axial and CC diameters respectively is noted involving the quadrigeminal cistern. It elicits a low signal on T1, a heterogeneous/dirty signal on FLAIR, and a high signal on T2 (CSF signal) with restricted diffusion and no enhancement following IV contrast. Anteriorly it indents and anteriorly displaces the splenium of the corpus callosum and quadrigeminal plate. Laterally it causes compression on bilateral lateral ventricles which are seen as mildly dilated. Post-Contrast Findings: No abnormal enhancement of the brain parenchyma or meninges. Ventricles and Sulci: No evidence of acute hydrocephalus. Sulci and cisternal spaces are age-appropriate. Brainstem and Cerebellum: Normal appearance of the brainstem and cerebellum without focal lesions or abnormal enhancement. Vessels: Intracranial vessels appear normal without evidence of vascular malformations or aneurysms. Skull and Calvarium: No evidence of skull vault lesions or abnormal marrow signals within the calvarium. IMPRESSION: 1. A large well-defined lobulated lesion is noted involving the quadrigeminal cistern causing mass effect as described. 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 2. No evidence of acute intracranial pathology or abnormal contrast enhancement. Electronically signed by Christiana Coleman 04-18-2024 07:57 AM Pending Results Patient Have Any Pending Studies at Discharge: No Discharge Instructions Given to Patient (Per Discharging Provider) Pt is a 24yoM with PMHx significant for mood disorder, ongoing vape use who was admitted for further evaluation after witnessed seizure at work. 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 Does not remember what happened. States he did bite his tongue. Reportedly was told that customers in the store witnessed him having a seizure. Head CT done in the emergency room was suggestive of "possibility of quadrigeminal cistern arachnoid cyst" and recommended follow-up MRI. 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 Patient was treated in the emergency room with 1 g of IV Keppra and was evaluated by neurology who recommended continuing Keppra 500 mg twice a day and transferred to a tertiary care center for neurosurgical evaluation. Patient was accepted for transfer to [facility]. He and family are currently agreeable to going via ambulance in case he has seizures once more en route. Total Time Total Time Spent Total Time Spent (In Minutes): 60
[2024-04-18] MEDS: levETIRAcetam 500 MG TAB PO SCH (20:05)
[2024-04-18] MEDS: MELATONIN 3 MG TAB PO PRN (20:32)
[2024-04-19 07:06] LABS: Basophils # (auto) 0.05 K/uL (0.00-0.20); Basophils % (auto) 0.7 %; Eosinophils # (auto) 0.22 K/uL (0.00-0.50); Eosinophils % (auto) 3.2 %; Hematocrit (blood only) 44.4 % (42.0-52.0); Hemoglobin 15.8 g/dl (14.0-18.0); Immature Granulocytes # (auto) 0.02 K/uL (0.01-0.20); Immature Granulocytes % (auto) 0.3 %; Lymphocytes # (auto) 2.55 K/uL (1.20-3.40); Lymphocytes % (auto) 37.5 %; Mean Corpuscular Hemoglobin 32.1 pg (25.0-34.0); Mean Corpuscular Hgb Conc 35.6 g/dL (32.0-36.0); Mean Corpuscular Volume 90.2 fL (80.0-100.0); Mean Platelet Volume 11.1 fL (9.4-12.4); Monocytes # (auto) 0.81 K/uL (0.11-0.59); Monocytes % (auto) 11.9 %; Neutrophils # (auto) 3.15 K/uL (1.40-6.50); Neutrophils % (auto) 46.4 %; Platelet Count 204 K/uL (130-400); RDW Coefficient of Variation 12.7 % (11.5-14.5); RDW Standard Deviation 42.3 fL (36.4-46.3); Red Blood Count 4.92 M/uL (4.70-6.10)
[2024-04-19 07:30] LABS: BUN Creatinine Ratio 20.4 (10-20); Calcium 9.2 mg/dl (8.6-10.3); Creatinine Clr Calc Pharmacy 115.8 ml/min; Magnesium 2.3 mg/dl (1.7-2.4); Phosphorus 4.2 mg/dl (2.5-4.9); Potassium 3.8 mmol/L (3.5-5.1)
--- NOTE | 2024-04-19 07:52 | Hospitalist Progress Note ---
Date of Service April 19, 2024 Assessment & Plan (1) Seizure-like activity: (2) Abnormal CT scan of head: Plan Pt is a 24yoM with PMHx significant for mood disorder, ongoing vape use who was admitted for further evaluation after witnessed seizure at work. 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 Does not remember what happened. States he did bite his tongue. Reportedly was told that customers in the store witnessed him having a seizure. Head CT done in the emergency room was suggestive of "possibility of quadrigeminal cistern arachnoid cyst" and recommended follow-up MRI. 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 Patient was treated in the emergency room with 1 g of IV Keppra and was evaluated by neurology who recommended continuing Keppra 500 mg twice a day and transferred to a tertiary care center for neurosurgical evaluation. Patient was accepted for transfer to [facility]. He and family are currently agreeable to going via ambulance in case he has seizures once more en route. Admission and Anticipated Discharge Date Admission Date: April 18, 2024 Subjective Patient was seen at about 7:40 AM before leaving with EMS. Denied any acute concerns overnight, no further episodes of seizures. denied headache Transfer to [facility] was delayed overnight due to transportation issues. Leaving this morning. Review of Systems Review of Systems: All systems reviewed & are unremarkable except as noted in Subjective Physical Exam Physical Exam: General: Alert, oriented. No acute distress Psych: Appropriate mood and affect Neuro: left hip pain otherwise grossly intact HEENT: NC/AT CV: RRR Resp: Breath sounds clear bilaterally, no increased effort of breathing Abdomen: Soft, nontender Extremities: No edema in lower extremities bilaterally. Results & Data Results & Data Vital Signs (Past 12 Hours) Vital Signs Temp Pulse Pulse Resp BP Pulse Ox O2 Del Method 04/19/24 07:11 47 L 04/19/24 04:16 36.5 C 57 L 16 117/70 96 Room Air 04/18/24 22:22 36.5 C 57 L 16 98/47 L 95 Room Air 04/18/24 21:58 57 L Diagnostic Findings Head CT 04/17/24 21:47 EXAM: CT head/brain wo con CLINICAL HISTORY: seizure TECHNIQUE: Multiple axial images are obtained from the skull base to the vertex without contrast. CT scan was performed according to ALARA (as low as reasonable achievable). COMPARISON: None. FINDINGS: Approximately 143 x 63 x 62 mm size well defined cystic lesion is noted involving quadrigeminal cistern. Anteriorly it abuts the splenium of corpus callosum and quadrigeminal plate. Laterally it causes compression on bilateral lateral ventricles. The brain shows normal morphology, attenuation, and volume for age. No evidence of emorrhage, edema, mass effect, midline shift, extra axial collection, or hydrocephalus is noted. Ventricles, sulci, and basal cisterns are symmetric and normal in size and configuration. The guevara-white matter differentiation is preserved. Visualized paranasal sinuses and mastoid air cells are well aerated. Orbital contents are within normal limits. Bony structures are intact. IMPRESSION: 1. 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 Anteriorly it abuts the splenium of corpus callosum and quadrigeminal plate. Laterally it causes compression on bilateral lateral ventricles.- possibility of quadrigeminal cistern arachnoid cyst. Advised MRI brain correlation. 2. No obvious changes of hydrocephalus. Electronically signed by Bhavik Stock 04-18-2024 02:37 AM Brain MRI 04/18/24 04:25 EXAM: MR brain seizure wo/w con CLINICAL HISTORY: The patient found in [employer] laying face down unresponsive. ? An arachnoid cyst seen on CT. C11B ordered as brain for seizure. images 584 TECHNIQUE: MRI of the brain was performed with and without 8.5cc Gadavist intravenous contrast administration. Sequences obtained include pre-contrast and post-contrast T1-weighted, T2-weighted, FLAIR (Fluid-Attenuated Inversion Recovery), DWI (Diffusion-Weighted Imaging), and ADC (Apparent Diffusion Coefficient) sequences. COMPARISON: Comparison is made with prior imaging studies dated CT 04/17/2024. FINDINGS: Brain Parenchyma: No evidence of acute infarction or hemorrhage. Guevara-white matter differentiation is preserved. No abnormal signal-intensity lesions were identified. A well-defined lobulated lesion approximately measuring 6.4 x 4.5 x 6.2 cm in axial and CC diameters respectively is noted involving the quadrigeminal cistern. It elicits a low signal on T1, a heterogeneous/dirty signal on FLAIR, and a high signal on T2 (CSF signal) with restricted diffusion and no enhancement following IV contrast. Anteriorly it indents and anteriorly displaces the splenium of the corpus callosum and quadrigeminal plate. Laterally it causes compression on bilateral lateral ventricles which are seen as mildly dilated. Post-Contrast Findings: No abnormal enhancement of the brain parenchyma or meninges. Ventricles and Sulci: No evidence of acute hydrocephalus. Sulci and cisternal spaces are age-appropriate. Brainstem and Cerebellum: Normal appearance of the brainstem and cerebellum without focal lesions or abnormal enhancement. Vessels: Intracranial vessels appear normal without evidence of vascular malformations or aneurysms. Skull and Calvarium: No evidence of skull vault lesions or abnormal marrow signals within the calvarium. IMPRESSION: 1. A large well-defined lobulated lesion is noted involving the quadrigeminal cistern causing mass effect as described. 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 2. No evidence of acute intracranial pathology or abnormal contrast enhancement. Electronically signed by Christiana Coleman 04-18-2024 07:57 AM
--- NOTE | 2024-04-21 17:25 | Electroencephalogram ---
EEG Procedure Note Date of Service April 18, 2024 Start / End Times Start Time: 06 End Time: 7[address] Clifford History A 24 yo M w seizure. EEG performed for evaluation of epileptiform acitivty. Home Medication List Medication Instructions Recorded Confirmed Type fluoxetine 20 mg capsule 20 mg PO QAM 04/18/24 04/18/24 History Inpatient Medication List Discontinued Medications Fluoxetine HCl (Fluoxetine Hcl 20 Mg Cap) 20 mg PO QAM XOCHILT Stop: 05/18/24 08:59 Last Admin: 04/18/24 09:55 Dose: 20 mg Documented By: ANTHONY Gadobutrol (Gadobutrol 65ml Vial) 8.5 ml IV ONCE ONE Stop: 04/18/24 06:23 Last Admin: 04/18/24 06:23 Dose: 8.5 ml Documented By: MANINDER Sodium Chloride (Nss) 1,000 mls @ 100 mls/hr IV .Q10H STA Stop: 04/18/24 13:40 Last Infusion: 04/18/24 15:26 Dose: Infused Documented By: Admin: 04/18/24 04:30 Dose: 100 mls/hr Documented By: OLU Levetiracetam (Levetiracetam 500 Mg/5 Ml Vial) 1,000 mg IV NOW STA Stop: 04/18/24 03:39 Last Admin: 04/18/24 04:33 Dose: 1,000 mg Documented By: OLU Levetiracetam (Levetiracetam 500 Mg Tab) 500 mg PO BID XOCHILT Stop: 05/18/24 20:59 Last Admin: 04/18/24 20:05 Dose: 500 mg Documented By: [id number] Melatonin (Melatonin 3 Mg Tab) 3 mg PO HS PRN PRN Reason: Sleep Stop: 05/18/24 20:12 Last Admin: 04/18/24 20:32 Dose: 3 mg Documented By: [id number] Description This is a 21 electrode EEG with a single channel dedicated to limited EKG. The electrodes were placed in accordance with the International 10-20 system. REPORT: At the onset of the EEG, the patient is drowsy. The background activity consist of 10-11 Hz, persistent, posteriorly dominant, moderate amplitude, symmetric and rhythmic activity that is reactive to eye opening. Anteriorly, it consist of a mixture of low voltage indeterminate activity and 15-25 Hz, persistent, low amplitude, symmetric and rhythmic activity. Stepwise intermittent photic stimulation (1-21 Hz) does not induce any abnormalities. Drowsiness is characterized by low amplitude mixed frequency activity, roving eye movements, and decreased eye blinking and muscle artifact. Interpretation IMPRESSION: This is a normal awake and drowsy routine EEG. There is no evidence of focal slowing or epileptiform activity.
[2024-04-22 10:27] LABS: Marijuana Quant, GCMS Urine 639 ng/mL (<5)
== END 2024-04-19 08:29 | disposition short-term general hospital (02) | DRG 101 ==
LOC: ED 20:32 → EDINP 04-18 03:41 → 2N 04-18 08:16